=== PATIENT | female | born 1975 | race Caucasian/White ===

== ENCOUNTER 2019-09-05 15:18 | Emergency (ER) | payer SELFPAY ==
[~2019-09-05] VITALS: Ht 160 cm; Wt 115.4 kg
--- NOTE | 2019-09-05 15:21 | ED Abdominal Pain ---
General Chief Complaint: Abdominal/GI Problems Stated Complaint: NAUSEA/VOMITING Source of Information: Patient History of Present Illness Date Seen by Provider: Sep 05, 2019 Time Seen by Provider: 15:21 Initial Comments Patient is a 43 y/o female who comes to the ER today c/o abdominal pain. She has been having symptoms over the last 48 hours. She describes worsening nausea and vomiting. Three episodes today with inability to keep any food or fluids down. No hematemesis. Also with diffuse abdominal pain. She has been having normal bowel movements. No urinary or vaginal complaints. LMP was over four weeks ago but she feels confident she is not . Surgical history significant only for c-sections. No recent fever. No ill contacts. Pain is not rated to be severe. Allergies and Home Medications Allergies Coded Allergies: Penicillins (Unverified Allergy, Unknown, NAUSEA, 05/06/14) PT STATES SHE GETS NAUSEATED AND VOMITS WHEN SHE TAKES PENNICILIN diphenhydramine (Unverified Allergy, Unknown, 05/06/14) PT STATES EBEN MAKES HER AGITATED Home Medications Nitrofurantoin Monohyd/M-Cryst 100 Mg Capsule, 1 TAB PO BID Prescribed by: MICHELLE BAUER on 09/05/191746 Ondansetron 4 Mg Tab.rapdis, 4 MG PO Q6H PRN for NAUSEA/VOMITING Prescribed by: MICHELLE BAUER on 09/05/191744 Patient Home Medication List Home Medication List Reviewed: Yes Review of Systems Review of Systems Constitutional: see HPI EENTM: No Symptoms Reported Respiratory: No Symptoms Reported Cardiovascular: No Symptoms Reported Gastrointestinal: See HPI Genitourinary: No Symptoms Reported Musculoskeletal: no symptoms reported Skin: no symptoms reported All Other Systems Reviewed Negative Unless Noted: Yes Past Srizpfn-Fjrrlt-Viunht Hx Patient Social History Recent Foreign Travel: No Contact w/Someone Who Travel: No Physical Exam Vital Signs Vital Signs - First Documented 09/05/19 15:22 Temp 35.5 Pulse 87 Resp 18 B/P (MAP) 110/72 (85) Pulse Ox 96 O2 Delivery Room Air Capillary Refill : Height/Weight/BMI Height: '" Weight: lbs. oz. kg; BMI Method: General Appearance: WD/WN, no apparent distress HEENT: PERRL/EOMI Neck: full range of motion Respiratory: lungs clear, normal breath sounds Cardiovascular: regular rate, rhythm Gastrointestinal: normal bowel sounds, soft, other (mildly TTP diffusely but no guarding or rebound is present.) Extremities: normal range of motion, normal inspection Neurologic/Psychiatric: oriented x 3 Skin: normal color Progress/Results/Core Measures Results/Orders Lab Results Laboratory Tests Test 09/05/19 15:40 09/05/19 15:52 Range/Units White Blood Count 11.1 H 4.3-11.0 10^3/uL Red Blood Count 5.04 4.35-5.85 10^6/uL Hemoglobin 13.7 11.5-16.0 G/DL Hematocrit 43 35-52 % Mean Corpuscular Volume 85 80-99 FL Mean Corpuscular Hemoglobin 27 25-34 PG Mean Corpuscular Hemoglobin Concent 32 32-36 G/DL Red Cell Distribution Width 18.7 H 10.0-14.5 % Platelet Count 245 130-400 10^3/uL Mean Platelet Volume 12.4 H 7.4-10.4 FL Neutrophils (%) (Auto) 61 42-75 % Lymphocytes (%) (Auto) 30 12-44 % Monocytes (%) (Auto) 7 0-12 % Eosinophils (%) (Auto) 2 0-10 % Basophils (%) (Auto) 0 0-10 % Neutrophils # (Auto) 6.7 1.8-7.8 X 10^3 Lymphocytes # (Auto) 3.3 1.0-4.0 X 10^3 Monocytes # (Auto) 0.8 0.0-1.0 X 10^3 Eosinophils # (Auto) 0.2 0.0-0.3 10^3/uL Basophils # (Auto) 0.0 0.0-0.1 10^3/uL Sodium Level 137 135-145 MMOL/L Potassium Level 3.7 3.6-5.0 MMOL/L Chloride Level 101 98-107 MMOL/L Carbon Dioxide Level 24 21-32 MMOL/L Anion Gap 12 5-14 MMOL/L Blood Urea Nitrogen 8 7-18 MG/DL Creatinine 0.98 0.60-1.30 MG/DL Estimat Glomerular Filtration Rate > 60 BUN/Creatinine Ratio 8 Glucose Level 124 H 70-105 MG/DL Calcium Level 9.4 8.5-10.1 MG/DL Corrected Calcium 9.5 8.5-10.1 MG/DL Total Bilirubin 0.3 0.1-1.0 MG/DL Aspartate Amino Transf (AST/SGOT) 19 5-34 U/L Alanine Aminotransferase (ALT/SGPT) 20 0-55 U/L Alkaline Phosphatase 108 40-136 U/L Troponin I < 0.30 <0.30 NG/ML Total Protein 6.6 6.4-8.2 GM/DL Albumin 3.9 3.2-4.5 GM/DL Lipase 20 8-78 U/L Urine Color DARK YELLOW Urine Clarity SL CLOUDY Urine pH 6.0 5-9 Urine Specific [place] 1.025 H 1.016-1.022 Urine Protein NEGATIVE NEGATIVE Urine Glucose (UA) NEGATIVE NEGATIVE Urine Ketones TRACE H NEGATIVE Urine Nitrite NEGATIVE NEGATIVE Urine Bilirubin 1+ H NEGATIVE Urine Urobilinogen 0.2 < = 1.0 MG/DL Urine Leukocyte Esterase NEGATIVE NEGATIVE Urine RBC (Auto) NEGATIVE NEGATIVE Urine RBC 0-2 /HPF Urine WBC 2-5 /HPF Urine Squamous Epithelial Cells 25-50 H /HPF Urine Crystals NONE /LPF Urine Bacteria LARGE H /HPF Urine Casts PRESENT /LPF Urine Hyaline Casts 25-50 H /LPF Urine Mucus LARGE H /LPF Urine Culture Indicated NO Urine Test NEGATIVE NEGATIVE My Orders Orders - MICHELLE BAUER DO Ed Iv/Invasive Line Start (09/05/19 15:25) Cbc With Automated Diff (09/05/19 15:25) Comprehensive Metabolic Panel (09/05/19 15:25) Lipase (09/05/19 15:25) Hcg,Qualitative Urine (09/05/19 15:25) Urinalysis (09/05/19 15:25) Ct Abdomen/Pelvis W (09/05/19 15:25) Ondansetron Injection (Zofran Injectio (09/05/19 15:30) Ns Iv 1000 Ml (Sodium Chloride 0.9%) (09/05/19 15:30) Iohexol Injection (Omnipaque 350 Mg/Ml 1 (09/05/19 16:00) Received Contrast (Hold Metformin- Contr (09/05/19 16:00) Sodium Chloride Flush (Catheter Flush Sy (09/05/19 16:00) Ns (Ivpb) (Sodium Chloride 0.9% Ivpb Bag (09/05/19 16:00) Ondansetron Injection (Zofran Injectio (09/05/19 16:45) Ns Iv 1000 Ml (Sodium Chloride 0.9%) (09/05/19 16:45) Troponin I Fs (09/05/19 17:04) Ekg Tracing (09/05/19 17:04) Ceftriaxone For Iv Use (Rocephin For I (09/05/19 17:15) Ns Iv 1000 Ml (Sodium Chloride 0.9%) (09/05/19 18:00) Medications Given in ED Current Medications Medications Dose Ordered Sig/Kendal Route Start Time Stop Time Status Last Admin Dose Admin Ceftriaxone Sodium 1000 mg/ Sterile Water 10 ml @ 200 mls/hr ONCE ONCE IV 09/05/19 17:15 09/05/19 17:17 DC 09/05/19 17:20 200 MLS/HR Iohexol 100 ml ONCE ONCE IV 09/05/19 16:00 09/05/19 16:01 DC 09/05/19 16:32 100 ML Ondansetron HCl 4 mg ONCE ONCE IVP 09/05/19 15:30 09/05/19 15:31 DC 09/05/19 15:32 4 MG Ondansetron HCl 4 mg ONCE ONCE IVP 09/05/19 16:45 09/05/19 16:46 DC 09/05/19 16:57 4 MG Sodium Chloride 10 ml NEEDED PRN IV 09/05/19 16:00 09/05/19 16:32 10 ML Sodium Chloride 100 ml ONCE ONCE IV 09/05/19 16:00 09/05/19 16:01 DC 09/05/19 16:32 100 ML Vital Signs/I&O 09/05/19 15:22 Temp 35.5 Pulse 87 Resp 18 B/P (MAP) 110/72 (85) Pulse Ox 96 O2 Delivery Room Air Progress Progress Note : Time: 15:51 Progress Note Patient is seen and examined on arrival to her room. No acute distress. Will place IV and give zofran. Standard abd pain work-up including UA, UCG. ED Summary: All results are reviewed and discussed with the patient. Workup is largely negative. Troponin is not elevated. The rest of her labs are reassuring. Urinalysis was positive for large bacteria but also with many epithelial cells. Patient is empirically treated in the ER with Rocephin and will be discharged home on Macrobid. During the ED course, she received 3 L of normal saline. This is primarily because she did have some hypotension with systolic blood pressures in the 80s. She was not symptomatic with these. She was given 2 doses of Zofran. At the time of discharge, her blood pressure was improved. She was emulating about the department and was asymptomatic. She was tolerating by mouth and subjectively felt improved. Patient is discharged to home. She is placed on Macrobid and given Zofran for control of symptoms at home. She will come back to the ER for any new or worsening symptoms. Initial ECG Impression Date: Sep 05, 2019 Initial ECG Impression Time: 17:20 Initial ECG Rate: 77 Initial ECG Rhythm: Normal Sinus Initial ECG Intervals: Normal Initial ECG Impression: Normal Departure Impression Primary Impression: Nausea and vomiting Disposition: 01 HOME, SELF-CARE Condition: Improved Departure-Patient Inst. Referrals: NO,LOCAL PHYSICIAN (PCP/Family) Primary Care Physician Scripts Nitrofurantoin Monohyd/M-Cryst (Macrobid 100 mg Capsule) 100 Mg Capsule 1 TAB PO BID for 5 Days, #10 CAP Prov: MICHELLE BAUER DO 09/05/19 Ondansetron (Ondansetron Odt) 4 Mg Tab.rapdis 4 MG PO Q6H PRN for NAUSEA/VOMITING, #8 TAB 0 Refills Prov: MICHELLE BAUER DO 09/05/19 MICHELLE BAUER DO Sep 05, 2019 15:21
[2019-09-05] MEDS ORDERED: ONDANSETRON 4 MG/2 ML (SDV) Z0FRAN IVP ONE ×2 (15:30→16:45)
[2019-09-05] MEDS ORDERED: NS IV 1000 ML 1,000 ML IV SCH ×3 (15:30→18:00)
[2019-09-05] MEDS ORDERED: IOHEXOL 350 MG/ML 100 ML (OMNIPAQUE 350) VIAL IV ONE (16:00)
[2019-09-05] MEDS ORDERED: NS 100 ML (IVPB) BAG IV ONE (16:00)
[2019-09-05] MEDS ORDERED: HOLD METFORMIN - RECEIVED CONTRAST 20 ML VIAL IV SCH (16:00)
[2019-09-05] MEDS ORDERED: CATHETER FLUSH 10 ML SYR IV PRN (16:00)
[2019-09-05 16:10] LABS: CLARITY,URINE SL CLOUDY; COLOR,URINE DARK YELLOW
[2019-09-05 16:11] LABS: BACTERIA,URINE LARGE /HPF; GLUCOSE, URINE (UA) NEGATIVE (NEGATIVE); HYALINE CASTS, URINE 25-50 /LPF; KETONES,URINE TRACE (NEGATIVE); LEUKOCYTE ESTERASE ,URINE NEGATIVE (NEGATIVE); NITRITE,URINE NEGATIVE (NEGATIVE); PROTEIN,URINE NEGATIVE (NEGATIVE); RBC,URINE 0-2 /HPF; SQUAMOUS EPITHELIAL CELL,UR 25-50 /HPF
[2019-09-05 16:12] LABS: BILIRUBIN,URINE 1+ (NEGATIVE)
[2019-09-05 16:12] LABS: WHITE BLOOD COUNT 11.1 10^3/uL (4.3-11.0)
[2019-09-05 16:13] LABS: BASOPHILS % (AUTO) 0 % (0-10); EOSINOPHILS # (AUTO) 0.2 10^3/uL (0.0-0.3); EOSINOPHILS % (AUTO) 2 % (0-10); HEMATOCRIT 43 % (35-52); HEMOGLOBIN 13.7 G/DL (11.5-16.0); LYMPHOCYTES # (AUTO) 3.3 X 10^3 (1.0-4.0); LYMPHOCYTES % (AUTO) 30 % (12-44); MEAN CORPUSCULAR HEMOGLOBIN 27 PG (25-34); MEAN CORPUSCULAR HGB CONC 32 G/DL (32-36); MEAN CORPUSCULAR VOLUME 85 FL (80-99); MEAN PLATELET VOLUME 12.4 FL (7.4-10.4); MONOCYTES # (AUTO) 0.8 X 10^3 (0.0-1.0); MONOCYTES % (AUTO) 7 % (0-12); NEUTROPHILS # (AUTO) 6.7 X 10^3 (1.8-7.8); NEUTROPHILS % (AUTO) 61 % (42-75); PLATELET COUNT 245 10^3/uL (130-400); RED CELL DISTRIBUTION WIDTH 18.7 % (10.0-14.5)
[2019-09-05 16:14] LABS: ALANINE AMINOTRANSFERASE 20 U/L (0-55); ALBUMIN 3.9 GM/DL (3.2-4.5); ALKALINE PHOSPHATASE 108 U/L (40-136); BILIRUBIN,TOTAL 0.3 MG/DL (0.1-1.0); BUN/CREATININE RATIO 8; CALCIUM 9.4 MG/DL (8.5-10.1); CARBON DIOXIDE 24 MMOL/L (21-32); CHLORIDE 101 MMOL/L (98-107); CREATININE SERUM 0.98 MG/DL (0.60-1.30); GFR ESTIMATED > 60; GLUCOSE 124 MG/DL (70-105); LIPASE 20 U/L (8-78); POTASSIUM 3.7 MMOL/L (3.6-5.0); SODIUM 137 MMOL/L (135-145); TOTAL PROTEIN 6.6 GM/DL (6.4-8.2)
--- NOTE | 2019-09-05 17:06 | Diagnostic Imaging Report ---
CT ABDOMEN/PELVIS W PROCEDURE: CT abdomen and pelvis with contrast. TECHNIQUE: Multiple contiguous axial images were obtained through the abdomen and pelvis after administration of intravenous contrast. INDICATION: Generalized abdominal pain with nausea and emesis. COMPARISON: None. FINDINGS: There is mild dependent atelectasis in the lung bases. There is low-density throughout the liver. Gallbladder is surgically absent. There is no significant biliary ductal dilatation. No pancreatic, adrenal gland or splenic lesion is identified. Kidneys are unremarkable in appearance. There is no evidence of free fluid. There is no evidence of bowel obstruction or dilatation. The appendix has a normal appearance. Unopacified bladder is unremarkable in appearance. There is degenerative disc disease at L5-S1 more pronounced on the right. IMPRESSION: Hepatic steatosis without other evidence of acute abnormality seen within the abdomen or pelvis. Dictated by: Dictated on workstation # [id number]
[2019-09-05] MEDS ORDERED: cefTRIAXone FOR IV USE 1,000 MG in WATER (STERILE) FOR INJECTION 10 ML IV ONE (17:15)
[2019-09-05] MEDS ORDERED: ONDA4TAB11 PO (17:45)
[2019-09-05] MEDS ORDERED: NITR-65 PO (17:47)
[2019-09-05 18:50] VITALS: BP 114/79
== END 2019-09-05 18:40 | disposition home or self-care (01) ==
LOC: EDUNIT# 15:18 → ER FS 15:20
DX: R11.2 Nausea with vomiting, unspecified (principal); R10.84 Generalized abdominal pain; Z88.0 Allergy status to penicillin; Z88.8 Allergy status to other drugs, medicaments and biological substances
CPT/HCPCS: 36415; 74177; 80053; 81000; 83690; 84484; 84703; 85025; 93005

== ENCOUNTER → 2019-11-18 | Outpatient (CLI) | payer OTHER ==
[~2019-11-18] MED LIST: NITR-65 PO; ONDA4TAB11 PO
--- NOTE | 2019-11-18 16:09 | Diagnostic Imaging Report ---
EXAM: Lumbar spine 2 or 3 views. INDICATION: Chronic low back pain radiating into both hips. COMPARISON: None. FINDINGS: There are five lumbar-type vertebral bodies. Normal alignment. Vertebral body heights are preserved. No fractures. No substantial spondylotic change. Visualized pelvis is intact. IMPRESSION: Unremarkable lumbar spine radiographs. Dictated by: Dictated on workstation # [id number]
== END ==
LOC: RAD FS 14:12
PROVIDERS: ATTEND Family Medicine
DX: M54.5 Low back pain (principal)
CPT/HCPCS: 72100

== ENCOUNTER 2019-12-05 15:29 | Emergency (ER) | payer OTHER ==
[~2019-12-05] VITALS: Ht 160 cm; Wt 103.8 kg
--- NOTE | 2019-12-05 15:41 | NUR ---
Patient to CT.
--- NOTE | 2019-12-05 16:04 | Diagnostic Imaging Report ---
PROCEDURE: CT head without contrast. TECHNIQUE: Multiple contiguous axial images were obtained through the brain without the use of intravenous contrast. Auto Exposure Controls were utilized during the CT exam to meet ALARA standards for radiation dose reduction. INDICATION: Sudden onset right-sided weakness and right facial numbness. History of prior stroke. FINDINGS: By CT imaging, there are no findings of territorial loss of rodriguez-white differentiation. There is no evidence of intracranial mass effect or shift. There is no hydrocephalus. There is no abnormal extra-axial fluid collection. There is no finding of acute hemorrhage. The posterior fossa demonstrates a prominent cisterna magna but no significant abnormality. Mastoid air cells appear clear. Paranasal sinuses are clear. Orbital contents are unremarkable. IMPRESSION: 1. No CT evidence of territorial loss of rordiguez-white differentiation. 2. No evidence of focal hyperdense blood vessel. 3. No findings of hemorrhage, mass effect or hydrocephalus. Dictated by: Dictated on workstation # [id number]
--- NOTE | 2019-12-05 16:05 | Diagnostic Imaging Report ---
PATIENT HISTORY: Decreased loc. Right-sided weakness and facial numbness. TECHNIQUE: Single frontal view of the chest. COMPARISON: None. FINDINGS: The lung volumes are normal. No focal consolidation is seen. No large pleural effusion or pneumothorax is seen. The cardiomediastinal silhouette is normal in size and contour. No acute osseous abnormality is seen. IMPRESSION: No acute pulmonary abnormality seen. Dictated by: Dictated on workstation # [id number]
[2019-12-05 16:09] LABS: HEMATOCRIT 44 % (35-52); HEMOGLOBIN 14.1 G/DL (11.5-16.0); MEAN CORPUSCULAR HEMOGLOBIN 27 PG (25-34); MEAN CORPUSCULAR HGB CONC 32 G/DL (32-36); MEAN CORPUSCULAR VOLUME 84 FL (80-99); MEAN PLATELET VOLUME 12.5 FL (7.4-10.4); NEUTROPHILS % (AUTO) 59 % (42-75); PLATELET COUNT 283 10^3/uL (130-400); WHITE BLOOD COUNT 11.4 10^3/uL (4.3-11.0)
[2019-12-05 16:10] LABS: BASOPHILS % (AUTO) 0 % (0-10); EOSINOPHILS # (AUTO) 0.2 10^3/uL (0.0-0.3); EOSINOPHILS % (AUTO) 2 % (0-10); LYMPHOCYTES # (AUTO) 3.6 X 10^3 (1.0-4.0); LYMPHOCYTES % (AUTO) 32 % (12-44); MONOCYTES # (AUTO) 0.8 X 10^3 (0.0-1.0); MONOCYTES % (AUTO) 7 % (0-12); NEUTROPHILS # (AUTO) 6.7 X 10^3 (1.8-7.8)
[2019-12-05 16:24] LABS: CLARITY,URINE CLEAR; COLOR,URINE YELLOW; GLUCOSE, URINE (UA) NEGATIVE (NEGATIVE); KETONES,URINE NEGATIVE (NEGATIVE); NITRITE,URINE NEGATIVE (NEGATIVE); PROTEIN,URINE NEGATIVE (NEGATIVE)
[2019-12-05 16:25] LABS: BILIRUBIN,URINE 1+ (NEGATIVE); HCG,QUALITATIVE URINE NEGATIVE (NEGATIVE); LEUKOCYTE ESTERASE ,URINE NEGATIVE (NEGATIVE); SQUAMOUS EPITHELIAL CELL,UR 0-2 /HPF
[2019-12-05 16:25] LABS: ALANINE AMINOTRANSFERASE 9 U/L (0-55); ALKALINE PHOSPHATASE 109 U/L (40-136); BILIRUBIN,TOTAL 0.2 MG/DL (0.1-1.0); BUN/CREATININE RATIO 9; CALCIUM 9.4 MG/DL (8.5-10.1); CARBON DIOXIDE 25 MMOL/L (21-32); CHLORIDE 102 MMOL/L (98-107); CREATININE SERUM 0.94 MG/DL (0.60-1.30); GFR ESTIMATED > 60; GLUCOSE 97 MG/DL (70-105); SODIUM 138 MMOL/L (135-145); TOTAL PROTEIN 7.1 GM/DL (6.4-8.2)
[2019-12-05 16:26] LABS: ACETAMINOPHEN < 10 UG/ML (10-30); SALICYLATE < 5.0 MG/DL (5.0-20.0)
[2019-12-05 16:29] LABS: INR 0.9 (0.8-1.4); PROTHROMBIN TIME PATIENT 12.7 SEC (12.2-14.7)
[2019-12-05 16:34] LABS: AMPHETAMINE SCREEN, URINE NEGATIVE (NEGATIVE); BARBITURATE SCREEN URINE NEGATIVE (NEGATIVE); BENZODIAZEPINES SCREEN URINE NEGATIVE (NEGATIVE); CANNABINOID SCREEN, URINE POSITIVE (NEGATIVE); COCAINE SCREEN URINE NEGATIVE (NEGATIVE); METHADONE STAT NEGATIVE (NEGATIVE); METHAMPHETAMINE SCREEN URINE S NEGATIVE (NEGATIVE); OPIATE SCREEN URINE NEGATIVE (NEGATIVE); OXYCODONE STAT NEGATIVE (NEGATIVE); PROPOXYPHENE STAT NEGATIVE (NEGATIVE); TRICYCLIC ANTIDEPRESSANTS SCRE NEGATIVE (NEGATIVE)
--- NOTE | 2019-12-05 16:43 | ED General ---
General Chief Complaint: Neuro-Stroke Like Symptoms Stated Complaint: MOUTH DROOPING, FACE NUMB History of Present Illness Date Seen by Provider: Dec 05, 2019 Time Seen by Provider: 15:45 Initial Comments 44 yo female complains of onset several hours ago this morning of tingling all over facial drooping and difficulty walking patient either is, or acts, pretty sedated is semi - cooperative at best she does know she is at the hospital in [place] she does follow commands Is far more responsive when her cell phone rings in answering it and speaking on it patient claims to have had a stroke 20 years ago when she was 24 says she had facial droop and also some extremity numbness she denies history of lupus MS congenital heart or neurologic problems apparently that event did not leave her with any long-term symptoms Allergies and Home Medications Allergies Coded Allergies: Penicillins (Unverified Allergy, Unknown, NAUSEA, 05/06/14) PT STATES SHE GETS NAUSEATED AND VOMITS WHEN SHE TAKES PENNICILIN diphenhydramine (Unverified Allergy, Unknown, 05/06/14) PT STATES EBEN MAKES HER AGITATED Home Medications Nitrofurantoin Monohyd/M-Cryst 100 Mg Capsule, 1 TAB PO BID Prescribed by: MICHELLE BAUER on 09/05/191746 Ondansetron 4 Mg Tab.rapdis, 4 MG PO Q6H PRN for NAUSEA/VOMITING Prescribed by: MICHELLE BAUER on 09/05/191744 Patient Home Medication List Home Medication List Reviewed: Yes Review of Systems Review of Systems Constitutional: No chills, No fever; weakness EENTM: no symptoms reported; No hearing loss, No ear pain, No blurred vision, No double vision, No vision loss, No throat pain Respiratory: no symptoms reported Cardiovascular: no symptoms reported Gastrointestinal: No abdominal pain, No diarrhea, No nausea, No vomiting Genitourinary: No dysuria Past Dfjgapl-Kwbztw-Judypj Hx Patient Social History Type Used: Cigarettes 2nd Hand Smoke Exposure: No Recent Hopitalizations: No Seasonal Allergies Seasonal Allergies: No Past Medical History Surgeries: Yes Section Respiratory: No Cardiac: Yes High Cholesterol Neurological: No Genitourinary: Yes Renal Failure Gastrointestinal: No Musculoskeletal: Yes Degenerate Disk Disease Endocrine: No HEENT: No Cancer: No Psychosocial: No Integumentary: No Physical Exam Vital Signs Capillary Refill : Height, Weight, BMI Height: '" Weight: lbs. oz. kg; 45.00 BMI Method: General Appearance: No Apparent Distress (patient speaks in a whisper was barely responsive when she first arrived has gradually become more responsive no history of seizure activity), WD/WN Eyes: Bilateral Eye PERRL, Bilateral Eye EOMI HEENT: PERRL/EOMI, TMs Normal, Pharynx Normal, Moist Mucous Membranes, Other (patient will not cooperate when asked to grimace (repeatedly) no difficulty holding the eyes closed) Neck: Full Range of Motion, Supple, Other (no bruit heard) Respiratory: Chest Non Tender, Lungs Clear, Normal Breath Sounds Cardiovascular: Regular Rate, Rhythm, No Gallop, No Murmur Gastrointestinal: Normal Bowel Sounds, Non Tender, Soft Extremity: Other (she has strong equal hostel parent and finger to nose and both upper extremities is normal he has strong plantar and dorsiflexion in both lower extremities) Neurologic/Psychiatric: Alert, Oriented x3, No Motor/Sensory Deficits, Normal Mood/Affect, pantograph i engraver II-XII Norm as Tested (appear to be intact other than the fact the patient refuses to grimace) Skin: Warm/Dry Progress/Results/Core Measures Suspected Sepsis SIRS Temperature: Pulse: Respiratory Rate: Laboratory Tests 12/05/19 15:55: White Blood Count 11.4H Blood Pressure / Mean: Laboratory Tests 12/05/19 15:55: Creatinine 0.94, INR Comment 0.9, Platelet Count 283, Total Bilirubin 0.2 Results/Orders Lab Results Laboratory Tests Test 12/05/19 15:55 12/05/19 16:15 Range/Units White Blood Count 11.4 H 4.3-11.0 10^3/uL Red Blood Count 5.29 4.35-5.85 10^6/uL Hemoglobin 14.1 11.5-16.0 G/DL Hematocrit 44 35-52 % Mean Corpuscular Volume 84 80-99 FL Mean Corpuscular Hemoglobin 27 25-34 PG Mean Corpuscular Hemoglobin Concent 32 32-36 G/DL Red Cell Distribution Width 15.9 H 10.0-14.5 % Platelet Count 283 130-400 10^3/uL Mean Platelet Volume 12.5 H 7.4-10.4 FL Immature Granulocyte % (Auto) 0 % Neutrophils (%) (Auto) 59 42-75 % Lymphocytes (%) (Auto) 32 12-44 % Monocytes (%) (Auto) 7 0-12 % Eosinophils (%) (Auto) 2 0-10 % Basophils (%) (Auto) 0 0-10 % Neutrophils # (Auto) 6.7 1.8-7.8 X 10^3 Lymphocytes # (Auto) 3.6 1.0-4.0 X 10^3 Monocytes # (Auto) 0.8 0.0-1.0 X 10^3 Eosinophils # (Auto) 0.2 0.0-0.3 10^3/uL Basophils # (Auto) 0.0 0.0-0.1 10^3/uL Immature Granulocyte # (Auto) 0.0 0.0-0.1 10^3/uL Prothrombin Time 12.7 12.2-14.7 SEC INR Comment 0.9 0.8-1.4 Sodium Level 138 135-145 MMOL/L Potassium Level 4.0 3.6-5.0 MMOL/L Chloride Level 102 98-107 MMOL/L Carbon Dioxide Level 25 21-32 MMOL/L Anion Gap 11 5-14 MMOL/L Blood Urea Nitrogen 8 7-18 MG/DL Creatinine 0.94 0.60-1.30 MG/DL Estimat Glomerular Filtration Rate > 60 BUN/Creatinine Ratio 9 Glucose Level 97 70-105 MG/DL Calcium Level 9.4 8.5-10.1 MG/DL Corrected Calcium 9.4 8.5-10.1 MG/DL Total Bilirubin 0.2 0.1-1.0 MG/DL Aspartate Amino Transf (AST/SGOT) 13 5-34 U/L Alanine Aminotransferase (ALT/SGPT) 9 0-55 U/L Alkaline Phosphatase 109 40-136 U/L Total Protein 7.1 6.4-8.2 GM/DL Albumin 4.0 3.2-4.5 GM/DL Salicylates Level < 5.0 L 5.0-20.0 MG/DL Acetaminophen Level < 10 L 10-30 UG/ML Serum Alcohol < 10 <10 MG/DL Urine Color YELLOW Urine Clarity CLEAR Urine pH 7.0 5-9 Urine Specific [place] 1.020 1.016-1.022 Urine Protein NEGATIVE NEGATIVE Urine Glucose (UA) NEGATIVE NEGATIVE Urine Ketones NEGATIVE NEGATIVE Urine Nitrite NEGATIVE NEGATIVE Urine Bilirubin 1+ H NEGATIVE Urine Urobilinogen 0.2 < = 1.0 MG/DL Urine Leukocyte Esterase NEGATIVE NEGATIVE Urine RBC (Auto) NEGATIVE NEGATIVE Urine RBC NONE /HPF Urine WBC NONE /HPF Urine Squamous Epithelial Cells 0-2 /HPF Urine Crystals NONE /LPF Urine Bacteria NONE /HPF Urine Casts NONE /LPF Urine Mucus NEGATIVE /LPF Urine Culture Indicated NO Urine Test NEGATIVE NEGATIVE Urine Opiates Screen NEGATIVE NEGATIVE Urine Oxycodone Screen NEGATIVE NEGATIVE Urine Methadone Screen NEGATIVE NEGATIVE Urine Propoxyphene Screen NEGATIVE NEGATIVE Urine Barbiturates Screen NEGATIVE NEGATIVE Ur Tricyclic Antidepressants Screen NEGATIVE NEGATIVE Urine Phencyclidine Screen NEGATIVE NEGATIVE Urine Amphetamines Screen NEGATIVE NEGATIVE Urine Methamphetamines Screen NEGATIVE NEGATIVE Urine Benzodiazepines Screen NEGATIVE NEGATIVE Urine Cocaine Screen NEGATIVE NEGATIVE Urine Cannabinoids Screen POSITIVE H NEGATIVE My Orders Orders - JIM CARROLL MD Ct Head Wo (12/05/19 15:38) Salicylate (12/05/19 15:41) Acetaminophen (12/05/19 15:41) Alcohol (12/05/19 15:41) Cbc With Automated Diff (12/05/19 15:41) Protime With Inr (12/05/19 15:41) Comprehensive Metabolic Panel (12/05/19 15:41) Monitor-Rhythm Ecg Trace Only (12/05/19 15:41) Chest 1 View Ap/Pa Only (12/05/19 15:41) Ekg Tracing (12/05/19 15:41) Urinalysis (12/05/19 15:41) Drug Screen Stat (Urine) (12/05/19 15:41) Hcg,Qualitative Urine (12/05/19 15:41) Orthostatic Vital Signs (Adult (12/05/19 16:55) Thyroid Stimulating Hormone (12/05/19 17:11) Vital Signs/I&O Capillary Refill : Progress Note : Progress Note CT head shows no acute changes chest x-ray normal Hb14.1 white blood count 11,400 UA is negative UCG negative CMP is normal salicylate and acetaminophen levels are negative UDS - + THC only pt denies alcohol - neg orthostats neg pt finally smiled and had a symmetric facial grimace TSH ordered and pending at this point am not finding any acute pathology to adress or reason to admit the pt ECG Comment Normal sinus rhythm rate 68 no acute changes Departure Impression Primary Impression: Weakness Disposition: 01 HOME, SELF-CARE Condition: Improved Departure-Patient Inst. Decision time for Depature: 17:09 Referrals: SELF,CHANCE HERNANDEZ (PCP/Family) Primary Care Physician Patient Instructions: Generalized Weakness Add. Discharge Instructions: please follow up with your primary doctor if you do not improve a thyroid blood test is pending JIM CARROLL MD Dec 05, 2019 16:43
[2019-12-05 17:37] VITALS: BP_SYST 114; BP_SYST 130; BP_SYST 135; BP_DIAS 74; BP_DIAS 94; BP_DIAS 97
== END 2019-12-05 17:30 | disposition home or self-care (01) ==
LOC: EDUNIT# 15:29 → ER FS 15:30
DX: R53.1 Weakness (principal); Z88.0 Allergy status to penicillin; Z88.8 Allergy status to other drugs, medicaments and biological substances
CPT/HCPCS: 36415; 70450; 71045; 80053; 80306; 81000; 84443; 84703; 85025; 85610; 93041; 99284; G0480 ×3; 80320; 80329

== ENCOUNTER 2019-12-18 18:07 | Emergency (ER) | payer OTHER ==
[~2019-12-18] VITALS: Ht 160 cm; Wt 108.0 kg
--- NOTE | 2019-12-18 18:37 | ED General ---
General Chief Complaint: Neuro-Stroke Like Symptoms Stated Complaint: TWO SEIZURES TODAY Source of Information: Patient Exam Limitations: No Limitations History of Present Illness Date Seen by Provider: Dec 18, 2019 Time Seen by Provider: 18:32 Initial Comments Patient is a 44-year-old with history of seizure disorder having increasing number of seizures today had 2 fell and hit her head hurting her neck and her low back she denies any other intercurrent illness no fever cough sore throat or diarrhea. Timing/Duration: 1-2 Days Modifying Factors: improves with Movement Associated Systoms: Other (neck pain head pain no back pain) Allergies and Home Medications Allergies Coded Allergies: Penicillins (Unverified Allergy, Unknown, NAUSEA, 05/06/14) PT STATES SHE GETS NAUSEATED AND VOMITS WHEN SHE TAKES PENNICILIN diphenhydramine (Unverified Allergy, Unknown, 05/06/14) PT STATES EBEN MAKES HER AGITATED Home Medications Nitrofurantoin Monohyd/M-Cryst 100 Mg Capsule, 1 TAB PO BID Prescribed by: MICHELLE BAUER on 09/05/191746 Ondansetron 4 Mg Tab.rapdis, 4 MG PO Q6H PRN for NAUSEA/VOMITING Prescribed by: MICHELLE BAUER on 09/05/191744 Patient Home Medication List Home Medication List Reviewed: Yes Review of Systems Review of Systems Constitutional: no symptoms reported EENTM: see HPI Respiratory: No cough, No dyspnea on exertion, No hemoptysis Cardiovascular: No chest pain, No edema Gastrointestinal: no symptoms reported Genitourinary: no symptoms reported Skin: no symptoms reported Psychiatric/Neurological: See HPI Past Vaxpezc-Anzonk-Krswph Hx Past Med/Social Hx: Reviewed Nursing Past Med/Soc Hx Patient Social History Alcohol Use: Denies Use Recreational Drug Use: No Type Used: Cigarettes 2nd Hand Smoke Exposure: No Recent Hopitalizations: No Physical Abuse: No Sexual Abuse: No Mistreated: No Fear: No Seasonal Allergies Seasonal Allergies: No Past Medical History Surgeries: Yes Section Respiratory: No Cardiac: Yes High Cholesterol Neurological: No Stroke Genitourinary: Yes Renal Failure Gastrointestinal: No Musculoskeletal: Yes Degenerate Disk Disease Endocrine: No HEENT: No Cancer: No Psychosocial: Yes Depression Integumentary: No Physical Exam Vital Signs Vital Signs - First Documented 12/18/19 18:31 Temp 37.2 Pulse 91 Resp 18 B/P (MAP) 107/64 (78) Pulse Ox 95 O2 Delivery Room Air Capillary Refill : Height, Weight, BMI Height: '" Weight: lbs. oz. kg; 40.00 BMI Method: General Appearance: No Apparent Distress, WD/WN Eyes: Bilateral Eye Normal Inspection, Bilateral Eye PERRL, Bilateral Eye EOMI HEENT: PERRL/EOMI, Normal ENT Inspection Neck: Full Range of Motion, Normal Inspection, Other (there is tenderness noted diffusely in the cervical spine area without deformity scalp is atraumatic) Respiratory: Chest Non Tender, Lungs Clear, Normal Breath Sounds Cardiovascular: Regular Rate, Rhythm, No Edema, No Gallop Gastrointestinal: Normal Bowel Sounds, No Organomegaly, No Pulsatile Mass, Non Tender Back: Normal Inspection, No CVA Tenderness, Other (there is tenderness noted in the lumbar spine area) Extremity: Normal Capillary Refill Neurologic/Psychiatric: Alert, Oriented x3, No Motor/Sensory Deficits, Normal Mood/Affect Progress/Results/Core Measures Suspected Sepsis SIRS Temperature: Pulse: Respiratory Rate: Laboratory Tests 12/18/19 19:00: White Blood Count 14.3H Blood Pressure / Mean: Laboratory Tests 12/18/19 19:00: Creatinine 0.88, Platelet Count 253, Total Bilirubin 0.2 Results/Orders Lab Results Laboratory Tests Test 12/18/19 09:00 12/18/19 19:00 Range/Units White Blood Count 14.3 H 4.3-11.0 10^3/uL Red Blood Count 4.99 4.35-5.85 10^6/uL Hemoglobin 12.8 11.5-16.0 G/DL Hematocrit 42 35-52 % Mean Corpuscular Volume 84 80-99 FL Mean Corpuscular Hemoglobin 26 25-34 PG Mean Corpuscular Hemoglobin Concent 31 L 32-36 G/DL Red Cell Distribution Width 16.0 H 10.0-14.5 % Platelet Count 253 130-400 10^3/uL Mean Platelet Volume 12.2 H 7.4-10.4 FL Immature Granulocyte % (Auto) 0 % Neutrophils (%) (Auto) 67 42-75 % Lymphocytes (%) (Auto) 24 12-44 % Monocytes (%) (Auto) 8 0-12 % Eosinophils (%) (Auto) 1 0-10 % Basophils (%) (Auto) 0 0-10 % Neutrophils # (Auto) 9.5 H 1.8-7.8 X 10^3 Lymphocytes # (Auto) 3.5 1.0-4.0 X 10^3 Monocytes # (Auto) 1.1 H 0.0-1.0 X 10^3 Eosinophils # (Auto) 0.2 0.0-0.3 10^3/uL Basophils # (Auto) 0.0 0.0-0.1 10^3/uL Immature Granulocyte # (Auto) 0.1 0.0-0.1 10^3/uL Neutrophils % (Manual) 73 % Lymphocytes % (Manual) 19 % Monocytes % (Manual) 8 % Sodium Level 138 135-145 MMOL/L Potassium Level 4.0 3.6-5.0 MMOL/L Chloride Level 106 98-107 MMOL/L Carbon Dioxide Level 23 21-32 MMOL/L Anion Gap 9 5-14 MMOL/L Blood Urea Nitrogen 9 7-18 MG/DL Creatinine 0.88 0.60-1.30 MG/DL Estimat Glomerular Filtration Rate > 60 BUN/Creatinine Ratio 10 Glucose Level 88 70-105 MG/DL Calcium Level 9.1 8.5-10.1 MG/DL Corrected Calcium 9.2 8.5-10.1 MG/DL Magnesium Level 2.1 1.6-2.4 MG/DL Total Bilirubin 0.2 0.1-1.0 MG/DL Aspartate Amino Transf (AST/SGOT) 15 5-34 U/L Alanine Aminotransferase (ALT/SGPT) 12 0-55 U/L Alkaline Phosphatase 103 40-136 U/L Total Protein 6.7 6.4-8.2 GM/DL Albumin 3.9 3.2-4.5 GM/DL My Orders Orders - DUKE SOUSA DO Cbc And Manual Diff (12/18/19 18:47) Dilantin (Phenytoin) (12/18/19 18:47) Comprehensive Metabolic Panel (12/18/19 18:47) Cervical Spine 3 View Or Less (12/18/19 18:47) Lumbar Spine 2 Or 3 View (12/18/19 18:47) Magnesium (12/18/19 18:47) Levetiracetam Injection (Keppra Injectio (12/18/19 21:00) Ed Iv/Invasive Line Start (12/18/19 18:53) Vital Signs/I&O 12/18/19 18:31 Temp 37.2 Pulse 91 Resp 18 B/P (MAP) 107/64 (78) Pulse Ox 95 O2 Delivery Room Air Capillary Refill : Progress Note : Progress Note Patient is a 44-year-old with known history of seizures had 2 seizures today is unaware of medications she currently takes for seizures. Complains of hurting her neck and her low back. Differential unlikely fracture of the plan will be x- ray studies of the C-spine low back screening labs and probably a loading the patient with Her Departure Communication (Admissions) Patient is department for 2 hours and typically on her telephone of the entire time no evidence of seizures labs are remarkable x-rays are unremarkable i nitially given a prescription for Keppra encouraged to take it regular. The primary care doctor Friday ibuprofen or Tylenol for her neck and back pain Impression Primary Impression: Seizure Disposition: HOME, SELF-CARE Condition: Improved Departure-Patient Inst. Decision time for Depature: 20:05 Referrals: SELF,CHANCE HERNANDEZ (PCP) Primary Care Physician Friday Patient Instructions: Seizures, Adult (DC) DUKE SOUSA DO Dec 18, 2019 18:37
[2019-12-18 19:08] LABS: BASOPHILS % (AUTO) 0 % (0-10); EOSINOPHILS # (AUTO) 0.2 10^3/uL (0.0-0.3); EOSINOPHILS % (AUTO) 1 % (0-10); HEMATOCRIT 42 % (35-52); HEMOGLOBIN 12.8 G/DL (11.5-16.0); LYMPHOCYTES # (AUTO) 3.5 X 10^3 (1.0-4.0); LYMPHOCYTES % (AUTO) 24 % (12-44); MEAN CORPUSCULAR HEMOGLOBIN 26 PG (25-34); MEAN CORPUSCULAR HGB CONC 31 G/DL (32-36); MEAN CORPUSCULAR VOLUME 84 FL (80-99); MEAN PLATELET VOLUME 12.2 FL (7.4-10.4); MONOCYTES # (AUTO) 1.1 X 10^3 (0.0-1.0); MONOCYTES % (AUTO) 8 % (0-12); NEUTROPHILS # (AUTO) 9.5 X 10^3 (1.8-7.8); NEUTROPHILS % (AUTO) 67 % (42-75); PLATELET COUNT 253 10^3/uL (130-400); WHITE BLOOD COUNT 14.3 10^3/uL (4.3-11.0)
[2019-12-18 19:23] LABS: LYMPHOCYTES % (MANUAL) 19 %; MONOCYTES % (MANUAL) 8 %; NEUTROPHILS % (MANUAL) 73 %
[2019-12-18 19:35] LABS: ALANINE AMINOTRANSFERASE 12 U/L (0-55); ALBUMIN 3.9 GM/DL (3.2-4.5); ALKALINE PHOSPHATASE 103 U/L (40-136); BILIRUBIN,TOTAL 0.2 MG/DL (0.1-1.0); BUN/CREATININE RATIO 10; CALCIUM 9.1 MG/DL (8.5-10.1); CARBON DIOXIDE 23 MMOL/L (21-32); CHLORIDE 106 MMOL/L (98-107); CREATININE SERUM 0.88 MG/DL (0.60-1.30); GFR ESTIMATED > 60; GLUCOSE 88 MG/DL (70-105); MAGNESIUM 2.1 MG/DL (1.6-2.4); SODIUM 138 MMOL/L (135-145); TOTAL PROTEIN 6.7 GM/DL (6.4-8.2)
--- NOTE | 2019-12-18 19:52 | Diagnostic Imaging Report ---
INDICATION: Back pain. History of seizures. EXAMINATION: Three views of the lumbar spine. FINDINGS: Normal height and alignment of the vertebral bodies. Disc spaces are well maintained. There is no spondylosis. There is mild degenerated facets at L5. There is no fracture. IMPRESSION: There are mild degenerative changes present with no acute abnormality seen. Dictated by: Dictated on workstation # [id number]
--- NOTE | 2019-12-18 19:53 | Diagnostic Imaging Report ---
INDICATION: Neck pain. History of seizures. EXAMINATION: Four views of the cervical spine. FINDINGS: Normal height and alignment of the vertebral bodies. There is mild disc space narrowing at C5-C6. No significant spondylosis is evident. There are mild degenerated facets in the lower cervical spine. There is no fracture. IMPRESSION: There are mild degenerative changes present with no acute abnormality seen. Dictated by: Dictated on workstation # [id number]
[2019-12-18] MEDS ORDERED: LEVE500T99 PO (20:00)
[2019-12-18 20:13] VITALS: BP 99/63
[2019-12-18] MEDS ORDERED: LEVETIRACETAM INJECTION 1,000 MG in NS (IVPB) 100 ML IV SCH (21:00)
== END 2019-12-18 20:14 | disposition home or self-care (01) ==
LOC: EDUNIT# 18:07 → ER FS 18:09
DX: G40.909 Epilepsy, unspecified, not intractable, without status epilepticus (principal); M54.2 Cervicalgia; M54.5 Low back pain; Z86.73 Personal history of transient ischemic attack (TIA), and cerebral infarction without residual deficits; Z88.0 Allergy status to penicillin; Z88.8 Allergy status to other drugs, medicaments and biological substances; W19.XXXA Unspecified fall, initial encounter
CPT/HCPCS: 36415; 72040; 72100; 80053; 80185; 83735; 85007; 85027

== ENCOUNTER 2020-03-07 13:32 | Outpatient (RCR) | payer BC, OTHER ==
[~2020-03-07 13:32] MED LIST changes: +LEVE500T99 PO
[2020-03-07 13:54] LABS: BASOPHILS % (AUTO) 0 % (0-10); EOSINOPHILS # (AUTO) 0.3 10^3/uL (0.0-0.3); EOSINOPHILS % (AUTO) 3 % (0-10); HEMATOCRIT 43 % (35-52); HEMOGLOBIN 13.3 g/dL (11.5-16.0); LYMPHOCYTES # (AUTO) 2.9 10^3/uL (1.0-4.0); LYMPHOCYTES % (AUTO) 26 % (12-44); MEAN CORPUSCULAR HEMOGLOBIN 25 pg (25-34); MEAN CORPUSCULAR HGB CONC 31 g/dL (32-36); MEAN CORPUSCULAR VOLUME 82 fL (80-99); MEAN PLATELET VOLUME 12.1 fL (9.0-12.2); MONOCYTES # (AUTO) 0.9 10^3/uL (0.0-1.0); MONOCYTES % (AUTO) 8 % (0-12); NEUTROPHILS # (AUTO) 7.3 10^3/uL (1.8-7.8); NEUTROPHILS % (AUTO) 64 % (42-75); PLATELET COUNT 283 10^3/uL (130-400); WHITE BLOOD COUNT 11.5 10^3/uL (4.3-11.0)
[2020-03-07 14:14] LABS: ALANINE AMINOTRANSFERASE 14 U/L (0-55); ALBUMIN 3.9 GM/DL (3.2-4.5); ALKALINE PHOSPHATASE 77 U/L (40-136); BILIRUBIN,TOTAL 0.2 MG/DL (0.1-1.0); BUN/CREATININE RATIO 14; CALCIUM 8.6 MG/DL (8.5-10.1); CARBON DIOXIDE 23 MMOL/L (21-32); CHLORIDE 105 MMOL/L (98-107); CREATININE SERUM 0.79 MG/DL (0.60-1.30); GFR ESTIMATED > 60; GLUCOSE 89 MG/DL (70-105); POTASSIUM 4.2 MMOL/L (3.6-5.0); SODIUM 135 MMOL/L (135-145); TOTAL PROTEIN 6.8 GM/DL (6.4-8.2)
== END 2020-06-05 | disposition home or self-care (01) ==
LOC: ONC 13:32
PROVIDERS: ATTEND Internal Medicine Hematology & Oncology
DX: D72.829 Elevated white blood cell count, unspecified (principal); E78.00 Pure hypercholesterolemia, unspecified
CPT/HCPCS: 80053; 83615; 85025; G0463; 99214

== ENCOUNTER 2020-08-10 15:10 | Outpatient (RCR) | payer BC, OTHER ==
[2020-08-10 15:14] LABS: BASOPHILS % (AUTO) 0 % (0-10); EOSINOPHILS # (AUTO) 0.3 10^3/uL (0.0-0.3); EOSINOPHILS % (AUTO) 2 % (0-10); HEMATOCRIT 45 % (35-52); HEMOGLOBIN 13.8 g/dL (11.5-16.0); LYMPHOCYTES # (AUTO) 3.4 10^3/uL (1.0-4.0); LYMPHOCYTES % (AUTO) 30 % (12-44); MEAN CORPUSCULAR HEMOGLOBIN 27 pg (25-34); MEAN CORPUSCULAR HGB CONC 31 g/dL (32-36); MEAN CORPUSCULAR VOLUME 87 fL (80-99); MEAN PLATELET VOLUME 12.5 fL (9.0-12.2); MONOCYTES % (AUTO) 8 % (0-12); NEUTROPHILS # (AUTO) 6.8 10^3/uL (1.8-7.8); NEUTROPHILS % (AUTO) 59 % (42-75); PLATELET COUNT 252 10^3/uL (130-400); WHITE BLOOD COUNT 11.5 10^3/uL (4.3-11.0)
[2020-08-10 15:35] LABS: ALANINE AMINOTRANSFERASE 13 U/L (0-55); ALKALINE PHOSPHATASE 59 U/L (40-136); BILIRUBIN,TOTAL 0.3 MG/DL (0.1-1.0); BUN/CREATININE RATIO 11; CALCIUM 9.2 MG/DL (8.5-10.1); CARBON DIOXIDE 25 MMOL/L (21-32); CHLORIDE 105 MMOL/L (98-107); CREATININE SERUM 0.81 MG/DL (0.60-1.30); GFR ESTIMATED > 60; GLUCOSE 101 MG/DL (70-105); POTASSIUM 4.1 MMOL/L (3.6-5.0); SODIUM 138 MMOL/L (135-145); TOTAL PROTEIN 6.9 GM/DL (6.4-8.2)
== END 2020-11-08 | disposition home or self-care (01) ==
LOC: ONC 15:10
PROVIDERS: ATTEND Internal Medicine Hematology & Oncology
DX: D72.829 Elevated white blood cell count, unspecified (principal); E78.00 Pure hypercholesterolemia, unspecified
CPT/HCPCS: 80053; 83615; 85025; G0463; 99213

== ENCOUNTER 2021-07-05 13:17 | Emergency (ER) | payer OTHER ==
[~2021-07-05] VITALS: Ht 162 cm; Wt 108.0 kg
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
[2021-07-05 14:05] VITALS: BP 132/68
[2021-07-05] MEDS ORDERED: KETOROLAC 30 MG/ML VIAL IM ONE (14:15)
== END 2021-07-05 14:13 | disposition home or self-care (01) ==
LOC: EDUNIT# 13:17 → ER FS 13:18
DX: S93.401A Sprain of unspecified ligament of right ankle, initial encounter (principal); S39.012A Strain of muscle, fascia and tendon of lower back, initial encounter; S16.1XXA Strain of muscle, fascia and tendon at neck level, initial encounter; V49.40XA Driver injured in collision with unspecified motor vehicles in traffic accident, initial encounter; Y92.410 Unspecified street and highway as the place of occurrence of the external cause
CPT/HCPCS: 70450; 71045; 72125; 72131; 72170; 73610; 99283; L4350